=== PATIENT | male | born 1960 | race Caucasian/White ===

== ENCOUNTER 2017-05-20 11:11 | Emergency (ER) | payer OTHER ==
[~2017-05-20] VITALS: Ht 172.7 cm; Wt 88.9 kg
[2017-05-20 11:29] VITALS: Ht 172.7 cm; Wt 88.9 kg
[2017-05-20 14:48] VITALS: BP 126/67
== END 2017-05-20 14:49 | disposition home or self-care (01) ==
LOC: ED 11:11
DX: I10 Essential (primary) hypertension (principal)
CPT/HCPCS: J0360

== ENCOUNTER 2018-05-18 10:26 | Emergency (ER) | payer BC ==
[~2018-05-18] VITALS: Ht 167.6 cm; Wt 89.8 kg
[2018-05-18 10:35] VITALS: Ht 167.6 cm; Wt 89.8 kg
[2018-05-18 11:18] LABS: BASOPHIL % 0.7 % (0-2); PLATELET COUNT 217 x10^3mcL (130-400)
[2018-05-18 11:27] LABS: CALCIUM 8.4 mg/dL (8.5-10.1); CHLORIDE SERUM 106 mmol/L (98-107); CREATININE SERUM 1.3 mg/dL (0.7-1.3); GFR1 > 60 mL/min; GLUCOSE SERUM 113 mg/dL (74-106); POTASSIUM SERUM 3.7 mmol/L (3.5-5.1); SODIUM SERUM 141 mmol/L (136-145)
[2018-05-18 11:31] LABS: ALBUMIN 3.6 g/dL (3.4-5.0); ALKALINE PHOSPHATASE 70 U/L (46-116); ALT/SGPT 25 U/L (16-63); AST/SGOT 16 U/L (15-37); BILIRUBIN TOTAL 0.46 mg/dL (0.20-1.00); TOTAL PROTEIN, SERUM 7.3 g/dL (6.4-8.2)
[2018-05-18 13:37] VITALS: BP 160/98
== END 2018-05-18 13:37 | disposition home or self-care (01) ==
LOC: ED 10:26
PROVIDERS: Emergency Medicine
DX: I10 Essential (primary) hypertension (principal); M54.2 Cervicalgia; R00.2 Palpitations; H93.13 Tinnitus, bilateral; R20.0 Anesthesia of skin
CPT/HCPCS: J3490